=== PATIENT | female | born 1975 | race Caucasian/White ===

== ENCOUNTER 2019-06-20 18:12 | Emergency (ER) | payer OTHER ==
[~2019-06-20] VITALS: Ht 152.4 cm; Wt 64.0 kg
[~2019-06-20 18:12] MED LIST: AMOX1TAB26 PO; FLUC200T PO; GEMF600T PO; HYDR-3240 PO; SIMV40TA PO
[2019-06-20] MEDS ORDERED: KETOROLAC 30 MG/1 ML IVPush ONE (18:30)
[2019-06-20] MEDS ORDERED: MORPHINE SULFATE 4 MG/ML, 1ML IVPush PRN (18:30)
[2019-06-20] MEDS ORDERED: ONDANSETRON 2MG/ML, 2ML IVPush ONE (18:30)
[2019-06-20] MEDS ORDERED: SODIUM CHLORIDE FLUSH 10ML SYR IVF ONE (18:30)
[2019-06-20 18:44] LABS: CULTURE INDICATED? YES; MICROSCOPIC INDICATED
[2019-06-20] MEDS ORDERED: ONDANSETRON 2MG/ML, 2ML ONE (18:50)
[2019-06-20] MEDS ORDERED: KETOROLAC 30 MG/1 ML ONE (18:50)
[2019-06-20 19:02] LABS: BASOPHILS # (AUTO) 0.05 x10^3/uL (0-0.1); BASOPHILS % (AUTO) 1 % (0-1); EOSINOPHILS # (AUTO) 0.16 x10^3/uL (0-0.4); EOSINOPHILS % (AUTO) 2 % (1-7); LYMPHOCYTES # (AUTO) 2.14 x10^3/uL (1-3.4); LYMPHOCYTES % (AUTO) 21 % (22-44); MD NO; MEAN CORPUSCULAR HEMOGLOBIN 29.8 pg (27.0-34.8); MEAN CORPUSCULAR HGB CONC 34.2 g/dL (32.4-35.8); MEAN CORPUSCULAR VOLUME 87.1 fL (80-100); MONOCYTES % (AUTO) 6 % (2-9); NEUTROPHILS # (AUTO) 7.24 x10^3/uL (1.8-6.8); NEUTROPHILS % (AUTO) 71 % (42-75); PLATELET COUNT 231 x10^3/uL (130-400); RED BLOOD COUNT 4.73 x10^6/uL (3.82-5.3); RED CELL DISTRIBUTION WIDTH 14.5 % (9.6-15.2)
[2019-06-20 19:07] LABS: ALANINE AMINOTRANSFERASE 36 U/L (12-78); ALBUMIN 3.9 g/dL (3.4-5.0); ANION GAP 10 mmol/L (5-15); CALCIUM 8.8 mg/dL (8.5-10.1); CHLORIDE 103 mmol/L (98-107); CREATININE 0.63 mg/dL (0.55-1.02)
[2019-06-20 19:12] LABS: ALKALINE PHOSPHATASE 83 U/L (45-117); BILIRUBIN,TOTAL 0.5 mg/dL (0.2-1.0); TOTAL PROTEIN 7.4 g/dL (6.4-8.2)
[2019-06-20] MEDS ORDERED: CEFTRIAXONE PMX 1GM/50ML 50 ML IV ONE (20:00)
[2019-06-20] MEDS ORDERED: CEFTRIAXONE PMX 1GM/50ML 50 ML ONE (20:03)
[2019-06-20 20:09] VITALS: BP 109/76
--- NOTE | 2019-06-20 20:09 | NUR ---
pt returned from CT in NAD, no needs at this time, awaiting recheck & dispo. WCTM.
--- NOTE | 2019-06-20 20:39 | NUR ---
Patient/Caregiver given discharge instructions and they have confirmed that they understand the instructions. Patient ambulatory with steady gait.
== END 2019-06-20 20:41 | disposition home or self-care (01) ==
LOC: ED 20:17
DX: N30.01 Acute cystitis with hematuria (principal); E11.65 Type 2 diabetes mellitus with hyperglycemia; N10 Acute pyelonephritis; R10.12 Left upper quadrant pain; R10.32 Left lower quadrant pain
CPT/HCPCS: 36415; 74176; 80053; 81001; 83690; 84703; 85025; 87077; 87086; 87147; 87186; 96365; 96375; 99284; J0696; J1885; J2405